=== PATIENT | male | born 1985 | race Caucasian/White ===

== ENCOUNTER → 2021-12-27 | Outpatient (CLI) | payer BC ==
[~2021-12-27] MED LIST: NORCO 7.5-3251 EACH PO
== END ==
LOC: KOH-I 09:15
DX: R10.84 Generalized abdominal pain (principal)
CPT/HCPCS: 76700

== ENCOUNTER → 2022-01-16 | Outpatient (CLI) | payer BC | LOC: NM 01-02 14:30 | DX: R10.11 Right upper quadrant pain (principal) | CPT/HCPCS: 78227; A9537 ==